=== PATIENT | male | born 1975 | race American Indian/Alaskan Native ===

== ENCOUNTER 2017-06-29 11:34 | Emergency (ER) | payer MEDICAID, OTHER ==
[2017-06-29 11:38] VITALS: BMI 26.0
[2017-06-29 11:39] VITALS: RESP 17; TEMP 97.6
--- NOTE | 2017-06-29 12:54 | ED PDOC ---
HPI: Psych/Substance Abuse Time Seen by Provider: 06/29/17 12:00 Chief Complaint (Nursing): Medical Clearance Chief Complaint (Provider): Crisis eval History Per: Patient Involuntary Hold By: Local Law Enforcement Additional Complaint(s): 42yo male, brought to ER under police custody for medical clearance prior to incarceration. Patient currently states he wishes to "kill the police because they arrested [me] for no reason." He states he might have a psychiatric history but denies taking any medication. He is also complaining of bilateral foot pain but denies any trauma or injuries. He has no other medical complaints. Past Medical History Reviewed: Historical Data, Nursing Documentation, Vital Signs Vital Signs: Last Vital Signs Temp 97.6 F 06/29/17 11:38 Pulse 71 06/29/17 11:38 Resp 17 06/29/17 11:38 BP 168/89 H 06/29/17 11:38 Pulse Ox 100 06/29/17 11:38 - Medical History PMH: No Chronic Diseases - Surgical History Surgical History: No Surg Hx - Family History Family History: States: No Known Family Hx - Allergies Allergies/Adverse Reactions: Allergies Allergy/AdvReac Type Severity Reaction Status Date / Time No Known Allergies Allergy Verified 06/29/17 11:58 Review of Systems ROS Statement: Except As Marked, All Systems Reviewed And Found Negative Musculoskeletal: Positive for: Foot Pain (bilateral) Psych: Positive for: Other (homicidal ideation) Physical Exam - Reviewed Nursing Documentation Reviewed: Yes Vital Signs Reviewed: Yes - Physical Exam Appears: Positive for: Non-toxic, No Acute Distress Head Exam: Positive for: ATRAUMATIC, NORMAL INSPECTION, NORMOCEPHALIC Skin: Positive for: Normal Color Neck: Positive for: Supple Cardiovascular/Chest: Positive for: Regular Rate, Rhythm Respiratory: Positive for: Normal Breath Sounds. Negative for: Respiratory Distress Extremity: Positive for: Normal ROM. Negative for: Tenderness Neurologic/Psych: Positive for: Alert, Oriented. Negative for: Motor/Sensory Deficits - Laboratory Results Result Diagrams: 06/29/17 14:04 06/29/17 14:04 - ECG O2 Sat by Pulse Oximetry: 100 (RA) Pulse Ox Interpretation: Normal Medical Decision Making Medical Decision Making: Impression: Medical clearance Plan: -- Alcohol serum -- CMP -- CBC -- Crisis evaluation Crisis evaluation complete.d Scribe Attestation: Documented by Regla Valdez acting as a scribe for CARLEEN Chavarria Provider Attestation: All medical record entries made by the Scribe were at my direction and personally dictated by me. I have reviewed the chart and agree that the record accurately reflects my personal performance of the history, physical exam, medical decision making, and the department course for this patient. I have also personally directed, reviewed, and agree with the discharge instructions and disposition. Disposition - Clinical Impression Clinical Impression: Adjustment disorder - Patient ED Disposition Is Patient to be Admitted: No - Disposition Disposition: Routine/Home Disposition Time: 17:42 Condition: GOOD Additional Instructions: Pt medically and psychiatrically cleared for incarceration. Instructions: Adjustment Disorder Forms: [facility] (Latvian)
[2017-06-29 14:12] LABS: HEMOGLOBIN 13.7 g/dL (12.0-18.0); MEAN CELL VOLUME 88.1 fl (80.0-94.0); MEAN CORPUSCULAR HEMOGLOBIN 29.7 pg (27.0-31.0); MEAN CORPUSCULAR HGB CONC 33.7 g/dL (33.0-37.0); RBC 4.62 Mil/uL (4.40-5.90); WHITE BLOOD COUNT 7.1 K/uL (4.8-10.8)
[2017-06-29 14:20] LABS: BLOOD UREA NITROGEN 19 mg/dl (9-20); GFR AFRICAN-AMERICAN > 60; GFR NON-AFRICAN AMERICAN > 60
[2017-06-29 14:21] LABS: ALB/GLOB RATIO 1.3 (1.0-2.1); ALBUMIN 4.2 g/dL (3.5-5.0); ALT/SGPT 48 U/L (21-72); AST/SGOT 64 U/L (17-59); CALCIUM 8.5 mg/dL (8.4-10.2)
[2017-06-29 15:35] VITALS: BP 147/89; PULSE 83
[2017-06-29 17:42] VITALS: O2SAT 100
== END 2017-06-29 18:07 ==
LOC: H.ER 11:34
DX: F43.20 Adjustment disorder, unspecified (principal); Z00.8 Encounter for other general examination; Z02.89 Encounter for other administrative examinations

== ENCOUNTER 2017-06-30 00:16 | Emergency (ER) | payer MEDICAID, OTHER ==
[2017-06-30 00:17] VITALS: BMI 26.0
[2017-06-30 00:31] VITALS: BP 139/87; PULSE 79; RESP 16; TEMP 98.9; O2SAT 100
--- NOTE | 2017-06-30 00:53 | ED PDOC ---
HPI: Psych/Substance Abuse Time Seen by Provider: 06/30/17 00:34 Chief Complaint (Nursing): Medical Clearance Chief Complaint (Provider): clearance for incarceration History Per: Patient Additional Complaint(s): 42 y/o male here in police custody for medical/psych clearance for incarceration. Patient seen earlier for same but did not give correct name. Patient denies acute medical or psychiatric complaints. Past Medical History Reviewed: Historical Data, Nursing Documentation, Vital Signs Vital Signs: Last Vital Signs Temp 98.9 F 06/30/17 00:28 Pulse 79 06/30/17 00:28 Resp 16 06/30/17 00:28 BP 139/87 06/30/17 00:28 Pulse Ox 100 06/30/17 00:28 - Medical History PMH: No Chronic Diseases Denies: Diabetes, Hepatitis, HIV, HTN, Seizures, Sexually Transmitted Disease - Family History Family History: States: No Known Family Hx - Social History Current smoker - smoking cessation education provided: Yes Alcohol: > 2 Drinks/Day Drugs: Denies - Immunization History Hx Tetanus Toxoid Vaccination: No Hx Influenza Vaccination: No Hx Pneumococcal Vaccination: No - Allergies Allergies/Adverse Reactions: Allergies Allergy/AdvReac Type Severity Reaction Status Date / Time No Known Allergies Allergy Verified 06/29/17 11:58 Review of Systems ROS Statement: Except As Marked, All Systems Reviewed And Found Negative Physical Exam - Reviewed Nursing Documentation Reviewed: Yes Vital Signs Reviewed: Yes - Physical Exam Appears: Positive for: Well, Non-toxic, Uncomfortable (jittery) Head Exam: Positive for: ATRAUMATIC, NORMAL INSPECTION, NORMOCEPHALIC Skin: Positive for: Normal Color Eye Exam: Positive for: Normal appearance ENT: Positive for: Normal ENT Inspection Cardiovascular/Chest: Positive for: Regular Rate, Rhythm Respiratory: Positive for: Normal Breath Sounds Gastrointestinal/Abdominal: Positive for: Normal Exam Back: Positive for: Normal Inspection Extremity: Positive for: Normal ROM Neurologic/Psych: Positive for: Alert, Oriented - ECG O2 Sat by Pulse Oximetry: 100 - Progress ED Course And Treament: Patient drinks daily, appears shaky; will give Librium PO Vitals remain stable Patient stable for discharge. Disposition - Clinical Impression Clinical Impression: Medical clearance for incarceration - Patient ED Disposition Is Patient to be Admitted: No Counseled Patient/Family Regarding: Diagnosis, Need For Followup - Disposition Disposition: Discharged/Transfer to Law Enforcement Disposition Time: 01:55 Condition: STABLE Additional Instructions: you are medically and psychiatrically cleared for incarceration and detox by Dr. Figueroa follow up with your doctor, return to ER if anything worsens
== END 2017-06-30 01:55 ==
LOC: H.ER 00:16
DX: Z02.89 Encounter for other administrative examinations (principal); Z00.8 Encounter for other general examination

== ENCOUNTER 2017-07-09 05:32 | Emergency (ER) | payer MEDICAID, OTHER ==
[2017-07-09 05:48] VITALS: BMI 24.0
[2017-07-09 05:50] VITALS: RESP 16; TEMP 97.8; O2SAT 98
--- NOTE | 2017-07-09 06:43 | ED PDOC ---
Upper Extremity Pain/Injury Time Seen by Provider: 07/09/17 06:00 Chief Complaint (Nursing): Upper Extremity Problem/Injury Chief Complaint (Provider): Upper Extremity Problem/Injury History Per: Patient History/Exam Limitations: no limitations Onset/Duration Of Symptoms: Days (x2 days) Past Medical History Vital Signs: Last Vital Signs Temp 97.8 F 07/09/17 06:01 Pulse 75 07/09/17 06:01 Resp 16 07/09/17 06:01 BP 140/89 07/09/17 06:01 Pulse Ox 98 07/09/17 06:01 - Medical History PMH: Denies: Diabetes, Hepatitis, HIV, HTN, Seizures, Sexually Transmitted Disease - Immunization History Hx Tetanus Toxoid Vaccination: No Hx Influenza Vaccination: No Hx Pneumococcal Vaccination: No - Allergies Allergies/Adverse Reactions: Allergies Allergy/AdvReac Type Severity Reaction Status Date / Time No Known Allergies Allergy Verified 06/29/17 11:58 - ECG O2 Sat by Pulse Oximetry: 98 Disposition - Disposition
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
[2017-07-09 06:56] LABS: BASO # 0.1 K/uL (0.0-0.2); BASO % 1.4 % (0.0-2.0); LYMPH # 2.1 K/uL (1.0-4.3); LYMPH % 46.6 % (20.0-40.0); MEAN CELL VOLUME 88.6 fl (80.0-94.0); MEAN CORPUSCULAR HEMOGLOBIN 30.1 pg (27.0-31.0); MEAN CORPUSCULAR HGB CONC 33.9 g/dL (33.0-37.0); MEAN PLATELET VOLUME 7.2 fl (7.2-11.7); MONO # 0.5 K/uL (0.0-0.8); MONO % 11.2 % (0.0-10.0); NEUT # 1.8 K/uL (1.8-7.0); NEUT % 39.8 % (50.0-75.0); NRBC % 0.1 % (0.0-0.0); RBC 4.33 Mil/uL (4.40-5.90); RED CELL DISTRIBUTION WIDTH 14.1 % (11.5-14.5); WHITE BLOOD COUNT 4.6 K/uL (4.8-10.8)
--- NOTE | 2017-07-09 07:19 | ED PDOC ---
- Laboratory Results Result Diagrams: 07/09/17 06:50 07/09/17 06:50 - ECG O2 Sat by Pulse Oximetry: 98 (RA) Pulse Ox Interpretation: Normal Medical Decision Making Medical Decision Making: Receiving sign out: Patient signed out to me by Dr. Hensley at 0700 pending XR, clinical sobriety and reevaluation. [id number] Patient is alert and awake . Patient ambulatory with steady gait. Scribe Attestation: Documented by Regla Valdez acting as a scribe for Melany Lloyd MD. Provider Attestation: All medical record entries made by the Scribe were at my direction and personally dictated by me. I have reviewed the chart and agree that the record accurately reflects my personal performance of the history, physical exam, medical decision making, and the department course for this patient. I have also personally directed, reviewed, and agree with the discharge instructions and disposition. Disposition - Clinical Impression Clinical Impression: Shoulder injury, Alcohol intoxication - POA Present On Arrival: None - Disposition Referrals: [facility] [Outside] Disposition: Routine/Home Disposition Time: 09:45 Condition: GOOD Additional Instructions: Follow up with your PCP in 2-3 days. Instructions: Alcohol Abuse and Alcoholism (DC)
[2017-07-09 07:27] VITALS: BP 117/74; PULSE 74
[2017-07-09 08:05] LABS: ALB/GLOB RATIO 1.2 (1.0-2.1); ALBUMIN 3.9 g/dL (3.5-5.0); ALT/SGPT 44 U/L (21-72); AST/SGOT 37 U/L (17-59); BLOOD UREA NITROGEN 13 mg/dl (9-20); CALCIUM 8.6 mg/dL (8.4-10.2); GFR AFRICAN-AMERICAN > 60; GFR NON-AFRICAN AMERICAN > 60
--- NOTE | 2017-07-09 09:34 | RAD ---
PROCEDURE: Radiographs of the Left Shoulder HISTORY: shoulder pain COMPARISON: No prior. FINDINGS: BONES: Normal. No fracture. JOINTS: Normal. Glenohumeral and acromioclavicular joints preserved. No osteoarthritis. SOFT TISSUES: Normal. OTHER FINDINGS: None. IMPRESSION: Normal radiographs of the left shoulder.
== END 2017-07-09 10:29 | disposition home or self-care (01) ==
LOC: H.ER 05:32
DX: S49.92XA Unspecified injury of left shoulder and upper arm, initial encounter (principal); Y04.0XXA Assault by unarmed brawl or fight, initial encounter; Y92.89 Other specified places as the place of occurrence of the external cause; F10.129 Alcohol abuse with intoxication, unspecified